=== PATIENT | female | born 1970 | race Hispanic/Latino ===

== ENCOUNTER → 2020-10-13 | Outpatient (CLI) | payer OTHER | END | disposition home or self-care (01) | LOC: RAH 13:18 | PROVIDERS: ATTEND Family Medicine | DX: R51.9 Headache, unspecified (principal); H53.8 Other visual disturbances | CPT/HCPCS: 70450 ==

== ENCOUNTER 2021-12-25 11:51 | Emergency (ER) | payer OTHER ==
[~2021-12-25] VITALS: Ht 162.6 cm; Wt 73.5 kg
[2021-12-25 12:18] VITALS: BP 99/61
[2021-12-25] MEDS: ACETAMINOPHEN 500 MG TABLET PO ONE (12:39)
[2021-12-25] MEDS: ACETAMINOPHEN 500 MG TABLET ONE (12:40)
== END 2021-12-25 14:43 | disposition home or self-care (01) ==
LOC: EDH 11:51
DX: M54.50 Low back pain, unspecified (principal); M25.552 Pain in left hip; V49.49XA Driver injured in collision with other motor vehicles in traffic accident, initial encounter; Y93.89 Activity, other specified; Y92.413 State road as the place of occurrence of the external cause; Y99.8 Other external cause status
CPT/HCPCS: 72100; 73502